=== PATIENT | male | born 1935 | race Caucasian/White ===

== ENCOUNTER 2025-02-05 19:16 | Outpatient (REF) | payer MEDICARE, SELFPAY ==
[2025-02-05 17:10] LABS: Glucose 100 mg/dL (Negative)
== END 2025-02-05 19:17 | disposition home or self-care (01) ==
LOC: LBN 19:16
PROVIDERS: Visit Provider Nurse Practitioner Gerontology
DX: E07.9 Disorder of thyroid, unspecified (principal); Z87.19 Personal history of other diseases of the digestive system; Z90.49 Acquired absence of other specified parts of digestive tract
CPT/HCPCS: 81003; 81015; 87086

== ENCOUNTER 2025-02-11 13:56 | Outpatient (REF) | payer MEDICARE, SELFPAY ==
[2025-02-11 15:56] LABS: Abs Immature Grans 0.02 10^3/uL (0.0-0.06); HCT 32.9 % (40.0-50.0); HGB 11.0 g/dL (13.5-17.5); Immature Grans % 0.4 %; MCH 34.1 pg (27.0-33.0); MCHC 33.4 % (32.0-36.0); MCV 102 fL (80-95); MPV 9.3 fL (8.0-11.0); Platelet Count 338 10^3/uL (130-400); RBC 3.23 10^6/uL (4.36-5.78); RDW 12.8 % (11.8-14.1); RDW-SD 48.6 fL; WBC 5.40 10^3/uL (4.4-10.8)
[2025-02-11 16:13] LABS: ALT 18 U/L (16-63); AST 18 U/L (15-37); Albumin 3.4 g/dL (3.4-5.0); Alkaline Phosphatase 162 U/L (46-116); Anion Gap 8.2 mmol/L (3-11); BUN 15 mg/dL (7-18); Bilirubin, Total 0.7 mg/dL (0.2-1.0); CO2 27.8 mmol/L (21.0-32.0); Calcium 9.0 mg/dL (8.5-10.1); Calculated LDL 30 mg/dL (<100); Chloride 100 mmol/L (98-107); Cholesterol 87 mg/dL (<200); Estimated GFR 85.65 (mL/min/1.73m2); Glucose 102 mg/dL (74-106); HDL Cholesterol 50 mg/dL (>or=40); Potassium 3.8 mmol/L (3.5-5.1); Sodium 136 mmol/L (136-145); TSH 2.41 uIU/mL (0.36-3.74); Total Protein 6.4 g/dL (6.4-8.2); Triglyceride 37 mg/dL (<150)
== END 2025-02-11 13:57 | disposition home or self-care (01) ==
LOC: LBN 13:56
PROVIDERS: Visit Provider Nurse Practitioner Adult Health
DX: I25.10 Atherosclerotic heart disease of native coronary artery without angina pectoris (principal); E78.5 Hyperlipidemia, unspecified
CPT/HCPCS: 80053; 80061; 84443; 85025

== ENCOUNTER 2025-02-18 15:43 | Outpatient (REF) | payer MEDICARE, SELFPAY ==
[2025-02-18 16:16] LABS: Glucose 100 mg/dL (Negative)
[2025-02-18 16:25] LABS: RBC >50 HPF (0-2)
== END 2025-02-18 15:44 | disposition home or self-care (01) ==
LOC: LBN 15:43
PROVIDERS: Visit Provider Nurse Practitioner Family
DX: Z91.81 History of falling (principal)
CPT/HCPCS: 87077; 81003; 81015; 87086; 87186

== ENCOUNTER 2025-03-12 18:01 | Outpatient (REF) | payer SELFPAY ==
[2025-03-12 12:01] LABS: Glucose Negative (Negative)
[2025-03-12 12:11] LABS: C & S Indicated? No; WBC 0-2 HPF (0-5)
== END 2025-03-12 18:02 | disposition home or self-care (01) ==
LOC: LBN 18:01
PROVIDERS: PCP Family Medicine; Visit Provider Family Medicine
DX: R30.0 Dysuria (principal)
CPT/HCPCS: 81003; 81015

== ENCOUNTER 2025-04-28 19:24 | Outpatient (REF) | payer SELFPAY ==
[2025-04-28 19:22] LABS: Glucose 500 mg/dL (Negative)
[2025-04-28 19:30] LABS: RBC >50 HPF (0-2)
== END 2025-04-28 19:25 | disposition home or self-care (01) ==
LOC: LBN 19:24
PROVIDERS: PCP Family Medicine; Visit Provider Nurse Practitioner Adult Health
DX: N18.2 Chronic kidney disease, stage 2 (mild) (principal)
CPT/HCPCS: 87077; 81003; 81015; 87086

== ENCOUNTER 2025-04-30 21:39 | Outpatient (REF) | payer SELFPAY ==
[2025-04-30 19:57] LABS: Abs Immature Grans 0.01 10^3/uL (0.0-0.06); HCT 32.4 % (40.0-50.0); HGB 10.4 g/dL (13.5-17.5); Immature Grans % 0.2 %; MCH 33.2 pg (27.0-33.0); MCHC 32.1 % (32.0-36.0); MCV 104 fL (80-95); MPV 9.6 fL (8.0-11.0); Platelet Count 242 10^3/uL (130-400); RBC 3.13 10^6/uL (4.36-5.78); RDW 12.5 % (11.8-14.1); RDW-SD 47.2 fL; WBC 6.37 10^3/uL (4.4-10.8)
[2025-04-30 20:00] LABS: ALT 13 U/L (16-63); AST 15 U/L (15-37); Albumin 2.9 g/dL (3.4-5.0); Alkaline Phosphatase 111 U/L (46-116); Anion Gap 7.3 mmol/L (3-11); BUN 26 mg/dL (7-18); Bilirubin, Total 0.4 mg/dL (0.2-1.0); CO2 28.7 mmol/L (21.0-32.0); Calcium 8.0 mg/dL (8.5-10.1); Calculated LDL 59 mg/dL (<100); Chloride 106 mmol/L (98-107); Cholesterol 110 mg/dL (<200); Estimated GFR 72.84 (mL/min/1.73m2); Glucose 98 mg/dL (74-106); HDL Cholesterol 36 mg/dL (>or=40); Potassium 4.3 mmol/L (3.5-5.1); Sodium 142 mmol/L (136-145); Total Protein 5.8 g/dL (6.4-8.2); Triglyceride 76 mg/dL (<150)
[2025-04-30 20:48] LABS: Hemoglobin A1C 5.5 % (<5.7)
== END 2025-04-30 21:40 | disposition home or self-care (01) ==
LOC: LBN 21:39
PROVIDERS: PCP Family Medicine; Visit Provider Nurse Practitioner Adult Health
DX: E78.5 Hyperlipidemia, unspecified (principal)
CPT/HCPCS: 80053; 80061; 83036; 85025

== ENCOUNTER 2025-05-04 09:48 | Emergency (ER) | payer MEDICARE, MEDICAID, SELFPAY ==
[2025-05-04 09:54] VITALS: BP 141/50; PULSE 61; RESP 16; TEMP 35.3; O2SAT 96
--- NOTE | 2025-05-04 10:04 | ED.GENADUL_ITS ---
Discharge Plan Disposition Patient Disposition: Custodial Facility(SNF) Condition: Good Discharge Details Clinical Impression: Closed fracture of greater trochanter of femur, Ecchymosis, Contusion of left shoulder Primary Care Provider: Horace Miguel ED Provider: Amada Landers Discharge Instructions Instructions: Acute Pain, Adult Additional Instructions: You have a fracture of the greater trochanter of your femur. This part of the bone does not bear weight so you do not need any surgery for this. Please continue to use your wheelchair. If you are ambulating, use a walker. Please continue with Tylenol and/or Ibuprofen for discomfort. Please use heat and/or ice for discomfort. Please follow up with your primary care provider in the next 1-2 weeks for reevaluation. If you develop fevers/chills, increased pain or other new/worsening symptoms, please seek care urgently once again. Shoulder has no fracture or dislocation. Spoke with Donna regarding plans for [facility]- she agrees with the above. Referrals: Horace Miguel [Primary Care Provider, Medicine] Discharge Data Discharge Date/Time-TO BE ENTERED AT DEPARTURE: 05/04/25 13:20 HPI General Date/Time Provider Initiated Documentation: 05/04/25 10:04 . Limitations to Documentation: no limitations . Information obtained by: patient, family (spoke with Donna- patient's POA) and RN notes reviewed . History of Present Illness 89 year old M presents to the emergency department with the chief complaint of left shoulder and left hip pain after fall, described as moderate, and is localized to the left, upper extremity and lower extremity. Patient reports no radiation. Patient started experiencing this day(s) (10) and it has been constant. Immobilization improves symptom(s), Movement worsens symptoms . Patient notes no other symptoms.. Patient did receive the following treatments prior to arrival, none Review of Systems Constitutional Constitutional: Reports as per HPI, Denies fever(s), Denies headache(s) and Denies weakness ENT Ears, Nose, Mouth, and Throat: Denies headache(s) Cardiovascular Cardiovascular: Reports as per HPI Respiratory Respiratory: Reports as per HPI and Denies cough Musculoskeletal Musculoskeletal: Reports as per HPI and Denies tingling Integumentary/Breasts Skin/Breast: Reports as per HPI, Denies rash and Denies wounds Neurologic Neurologic: Reports as per HPI, Denies headache(s), Denies tingling, Denies paresthesias and Denies weakness Exam Const General: cooperative, healthy appearing, comfortable, no acute distress, well developed and well groomed Nutritional Appearance: average body habitus and well nourished Orientation: alert and awake Resp Effort & Inspection: normal respiratory effort, able to speak in complete sentences and no respiratory distress Cardio Rate: regular rate Rhythm: regular rhythm Skin General skin exam: ecchymosis (lateral left hip) Neuro General: patient alert and patient awake Cognition: normal cognition Speech: speech normal Motor: muscle tone normal throughout Sensory Exam: no sensory deficits noted Extrem Left upper extremity: normal to inspection, full ROM, normal capillary refill, no joint enlargement, shoulder/upper arm Details: inspection abnormal, tenderness Location: of the proximal humerus and axillary nerve sensory function normal; no swelling, no lacerations and no ecchymosis, elbow/forearm Details: normal to inspection, normal ROM and distal pulses intact; no tenderness, wrist Details: normal to inspection, normal ROM, normal vascular exam and radial pulse present; no tenderness and no swelling and hand Details: normal to inspection, normal capillary refill, neuromotor exam normal, neurosensory exam normal and normal ROM of fingers Left lower extremity: normal capillary refill, no joint enlargement, hip/thigh Details: tenderness Location: of the hip (longitudinal ecchymosis over this marilia) Location: laterally and ecchymosis; no swelling, ROM abnormal, no crepitus and no deformity and knee Details: normal to inspection; no tenderness and no swelling; abnormal ROM (limited at hip) Medical Decision Making Patient is a pleasant 89-year-old gentleman brought in via EMS chief complaint of left shoulder and hip pain after he sustained a fall 10 days ago. Past medical history significant for Alzheimer's, dementia, CAD, hyperlipidemia, GERD, anemia, depression, panic disorder, hypertension, CKD, right hip pain with intertrochanteric fracture history. He reports that about 10 days ago he fell trying to get out of bed. He states that this was unwitnessed and to call for help. Since that time, he reports that he has had difficulty ambulating and has largely remained in bed. He denies striking his head. Denies any loss of consciousness. Denies any neck or back pain. States the pain in the hip has been making it difficult for him to mobilize. Patient denies any chest pain or shortness of breath. No pain with deep inspiration. Also has had pain in the left shoulder has been fairly consistent, particularly with reaching forward or upward. He denies any numbness or tingling. Denies any sensory changes. Has not noted rebel weakness but does report that the pain has limited his ability to straight leg raise on the left side compared to the right. On exam, patient appears non-toxic. He is happy and interactive. He is confused about past events but clear at this time and seems to have a good grasp on the events that brought in him in today. He has good ROM of the left hsoulder. Pain over the lateral proximal humerus. 2+ distal puses. Sesnation intact, axillary nerve intact. Full ROM of the elbow, wrist, hand. Neurovascularly intact. No pain or deformity to the clavicle or AC joint. Exam of the left hip reveals ecchymosis laterally. Left leg is slightly longer than the right, no rotational deformity. The right has had surgical intervention which may account for the slightly shorter right leg. ROM of the left is limited compared to the right, particularly the forward elevation. Spoke with Donna, his signficant others daughter, and his POA. She reports that he fell 10 days ago when he fell from his wheelchair. They had contacted her last week and said they would get an xray. Unable to see that here- they may have outside source doing their imaging. She did not hear about the results. Will obtain imaging. She advised that [facility] had contacted her today regarding transfer as they were thinking this may have been ACS. However, patient has not had any CP or SOB. He describes the onset of the pain with the fall 10 days ago. Donna also advised that she did not think that he would want any signifcant intervention should something emergent or medical be found. Given the history and patient's wishes, will hold off on cardiac workup. XR reviewed by myself and radiologist, patient has a displaced greater trochanteric fracture on the left side. Consulted with Dr. Valdivia who reviewed the images and advised no surgical intervention needed. Ambulate with walker- patient is in a wheelchair at baseline. Called [facility], updated on findings/plan. Called Donna again and updated her as well. Discussed with patient that he has contusion to left shoulder and displaced, non-surgical, fx to the left hip. Discussed supportive care. He uses wheelchair at baseline. Encouarged supportive care for discomfrot. Family going to visit soon. Return precautions discussed. All of his questions adn concerns werea ddressed, he is in agreement with this plan. Advised f/u with PCP. Patient transferred back to [facility]. PFSH All Active Problems (Updated 05/04/25 @ 12:16 by RUPA Meza) Contusion of left shoulder (Acute) Ecchymosis (Acute) Closed fracture of greater trochanter of femur (Acute) Social History Smoking/Tobacco Use Status: Former Tobacco Use Smoking risk assessment performed?: Yes Alcohol Intake: former Substance use type: does not use
--- NOTE | 2025-05-04 10:15 | DI.RAD_ITS ---
Exam(s) XR PELVIS AP XR FEMUR LT EXAM: XR PELVIS AP and XR femur LT CLINICAL HISTORY: fall, lateral pain. TECHNIQUE: 2D digital imaging was performed. Five images were obtained. COMPARISON: There are no priors for comparison. FINDINGS: BONES: There is an acute mildly displaced fracture of the left greater trochanter. There is approximately 1.2 cm displacement. No bony destructive lesion is seen. There is an intramedullary pilo transfixing an old right femoral fracture. There is a chronically displaced right greater trochanteric fracture. JOINTS: No dislocation present. No joint space narrowing is present. SOFT TISSUE: Normal. IMPRESSION: Displaced left greater trochanteric fracture. DATA REPOSITORY: RADIATION DOSE DELIVERED:
--- NOTE | 2025-05-04 10:15 | DI.RAD_ITS ---
Exam(s) XR SHOULDER LT COMPLETE 2+V EXAM: XR SHOULDER LT COMPLETE 2+V CLINICAL HISTORY: lateral pain after fall. TECHNIQUE: 2D digital imaging was performed of the left shoulder. Four images were obtained. AP, Grashey, Y-view and axillary views were obtained. COMPARISON: No exams were available for comparison FINDINGS: BONES: No acute fracture is present. No bony destructive lesion is seen. JOINTS: No dislocation present. SOFT TISSUE: Normal. IMPRESSION: There is no acute fracture or dislocation. DATA REPOSITORY: RADIATION DOSE DELIVERED:
== END 2025-05-04 13:20 | disposition skilled nursing facility (03) ==
PROVIDERS: Emergency Provider Physician Assistant; PCP Family Medicine
DX: S72.112A Displaced fracture of greater trochanter of left femur, initial encounter for closed fracture (principal); R23.3 Spontaneous ecchymoses; S40.012A Contusion of left shoulder, initial encounter; W19.XXXA Unspecified fall, initial encounter
CPT/HCPCS: 99284; 99283; 73552; 72170; 73030

== ENCOUNTER 2025-05-28 11:31 | Outpatient (REF) | payer MEDICARE, SELFPAY ==
[2025-05-28 20:03] LABS: Glucose Negative (Negative)
== END 2025-05-28 11:32 | disposition home or self-care (01) ==
LOC: LBN 11:31
PROVIDERS: PCP Family Medicine; Visit Provider Family Medicine
DX: N39.0 Urinary tract infection, site not specified (principal)
CPT/HCPCS: 81003; 87086

== ENCOUNTER 2025-06-16 18:55 | Outpatient (REF) | payer MEDICARE, SELFPAY ==
[2025-06-16 19:09] LABS: Glucose Negative (Negative); WBC 20-50 HPF (0-5)
[2025-06-16 19:10] LABS: RBC Negative HPF (0-2)
== END 2025-06-16 18:56 | disposition home or self-care (01) ==
LOC: LBN 18:55
PROVIDERS: PCP Family Medicine; Visit Provider Nurse Practitioner Adult Health
DX: N39.0 Urinary tract infection, site not specified (principal)
CPT/HCPCS: 87077; 81003; 81015; 87086; 87186

== ENCOUNTER 2025-07-04 09:37 | Outpatient (REF) | payer MEDICARE, SELFPAY ==
[2025-07-04 10:34] LABS: Abs Immature Grans 0.01 10^3/uL (0.0-0.06); HCT 39.2 % (40.0-50.0); HGB 12.6 g/dL (13.5-17.5); Immature Grans % 0.2 %; MCH 32.8 pg (27.0-33.0); MCHC 32.1 % (32.0-36.0); MCV 102 fL (80-95); MPV 10.0 fL (8.0-11.0); Platelet Count 241 10^3/uL (130-400); RBC 3.84 10^6/uL (4.36-5.78); RDW 12.5 % (11.8-14.1); RDW-SD 47.0 fL; WBC 5.70 10^3/uL (4.4-10.8)
== END 2025-07-04 09:38 | disposition home or self-care (01) ==
LOC: LBN 09:37
PROVIDERS: PCP Family Medicine; Visit Provider Nurse Practitioner Adult Health
DX: E46 Unspecified protein-calorie malnutrition (principal); N18.2 Chronic kidney disease, stage 2 (mild)
CPT/HCPCS: 80053; 83605; 85025

== ENCOUNTER 2025-07-05 13:50 | Outpatient (REF) | payer MEDICARE, SELFPAY ==
[2025-07-05 12:09] LABS: ALT 13 U/L (10-49); AST 18 U/L (<34); Albumin 3.6 g/dL (3.2-5.0); Alkaline Phosphatase 126 U/L (46-116); Anion Gap 8.8 mmol/L (3-11); BUN 21 mg/dL (9-23); Bilirubin, Total 0.50 mg/dL (0.2-1.2); CO2 26.2 mmol/L (20.0-31.0); Calcium 9.3 mg/dL (8.3-10.6); Chloride 107 mmol/L (98-107); Glucose 154 mg/dL (74-106); Potassium 4.1 mmol/L (3.5-5.1); Sodium 142 mmol/L (136-145); Total Protein 6.2 g/dL (5.7-8.2)
== END 2025-07-05 13:51 | disposition home or self-care (01) ==
LOC: LBN 13:50
PROVIDERS: PCP Family Medicine; Visit Provider Nurse Practitioner Adult Health
DX: I13.10 Hypertensive heart and chronic kidney disease without heart failure, with stage 1 through stage 4 chronic kidney disease, or unspecified chronic kidney disease (principal)
CPT/HCPCS: 80053; 83605